=== PATIENT | female | born 1950 | race Caucasian/White ===

== ENCOUNTER 2018-10-13 09:23 | Inpatient (IN) ==
--- NOTE | 2018-09-14 08:52 | PAT Medication Instructions ---
Medication Instructions Date of Service September 14, 2018 Home Medications Pennsaid 2 dose EXT BID bimatoprost [Lumigan] 1 drp OPHTHALMIC (EYE) PM [Caltrate with Vitamin D3] 1 tab PO BID docusate sodium 100 mg PO QAM [Centrum Chewables] 1 tab PO QAM ASK your surgeon for instructions Pennsaid 2 dose EXT BID DO NOT take the morning of surgery [Caltrate with Vitamin D3] 1 tab PO BID docusate sodium 100 mg PO QAM [Centrum Chewables] 1 tab PO QAM Take evening before surgery bimatoprost [Lumigan] 1 drp OPHTHALMIC (EYE) PM [Caltrate with Vitamin D3] 1 tab PO BID *NOTHING TO EAT OR DRINK AFTER MIDNIGHT* Other Notes If you have any questions please call us at [phone] or [phone] or [phone] or [phone]
--- NOTE | 2018-09-14 09:30 | Anesthesiology Consultation ---
Date of Service September 14, 2018 Assessment & Plan (1) Encounter for pre-operative examination: Chart Review Chart Review: Acceptable Risk for Surgery and Patient seen in Pre Admission Testing Teaching & Discussion Instructed NPO after midnight before surgery, except medications with 15 cc of water. Medication instructions provided according to the PAT guidelines. History Surgery Operation Date: 10/13/18 08:30 Proposed Procedures p Left Total Knee Arthroplasty - Abdiel Charles DO Height/Weight Height: 5 ft 7 in Weight: 74.5 kg Allergies Allergy/AdvReac Type Severity Reaction Status Date / Time rosuvastatin [From Crestor] Allergy Unknown muscle Verified 09/08/18 11:09 aches Medications Home Medications Medication Instructions Recorded Confirmed Last Taken Pennsaid 2 dose EXT BID 09/08/18 09/08/18 Unknown bimatoprost [Lumigan] 1 drp OPHTHALMIC (EYE) PM 09/08/18 09/08/18 Unknown calcium carbonate-vitamin D3 1 tab PO BID 09/08/18 09/08/18 Unknown [Caltrate with Vitamin D3] docusate sodium 100 mg PO QAM 09/08/18 09/08/18 Unknown hmtehhqm-cxe-gnrf-folic-vit K1 1 tab PO QAM 09/08/18 09/08/18 Unknown [Centrum Chewables] Past Medical History Medical History Environmental allergies Glaucoma Hx of breast cancer left - lumpectomy and subsequent B/L mastectomy with reconstruction 2013. No chemo or XRT Hx of retinal detachment surgical repair 1971 Osteoarthritis Osteopenia Seasonal allergies Past Surgical History Surgical History History of eye surgery for retinal detachment 1972 Hx of bilateral mastectomy with reconstruction 2013 [facility] Hx of colonoscopy Past Anesthesia History No Hx of Anesthesia Complications and No Family Hx of Anesthesia Complications History of PONV No Motion Sickness Screening History of Motion Sickness: No Social History Smoking Status: Never smoker Do You Dip or Chew Tobacco: No Hx Alcohol Use: Yes alcohol intake frequency: a few times a month Hx Substance Use: No substance use type: does not use Exercise / Class Metabolic Activity II 4-5 Yardwork/Stairs/Walk up hill Review of Systems Pt denies any recent chest pain, shortness of breath, palpitations, cough, fever or URI. +cough/congestion currently, OTC treatment. Physical Exam Vital Signs BP: 118/74 P: 65 SPO2: 97% RA T: 98.2 F R: 16 ENMT Mouth: no dental restorations, no chipped teeth and no loose teeth Thyromental Distance: > or= 3.5 Finger Breadths (3.5) Mallampati Class: II Neck normal visual inspection; neck extension not limited Respiratory normal respiratory effort Auscultation: lungs clear to auscultation bilaterally Cardiovascular Rate/Rhythm: regular rate and regular rhythm Heart Sounds: no murmur Vessels: no carotid bruit Testing Electrocardiogram Date: 09/14/18 Findings: + NSR @ (62) RIGHTWARD AXIS. Chest X-Ray Date: 05/26/18 Findings: + NAD Laboratory Results 09/14/18 10:00 Blood Type O Positive 09/14/18 10:00 Antibody Screen NEGATIVE 09/14/18 10:00 PT 10.2 Seconds (9.0-12.0) 09/14/18 10:00 INR 1.0 (0.9-1.1) 09/14/18 10:00 APTT 28.2 Seconds (21.0-31.0) 09/14/18 10:00 Hemoglobin A1c 5.4 % (4.5-5.6) 09/14/18 10:00 Urine Color Yellow 09/14/18 Unknown Urine Appearance Clear (Clear) 09/14/18 Unknown Urine pH 5.5 (4.5-7.5) 09/14/18 Unknown Ur Specific [place] 1.020 (1.000-1.030) 09/14/18 Unknown Urine Protein Negative (Negative) 09/14/18 Unknown Urine Glucose (UA) Negative (Negative) 09/14/18 Unknown Urine Ketones Negative (Negative) 09/14/18 Unknown Urine Nitrite Negative (Negative) 09/14/18 Unknown Ur Leukocyte Esterase Negative (Negative) 09/14/18 Unknown
[2018-09-14 11:23] LABS: Basophils # (auto) 0.05 K/uL (0-0.2); Basophils % (auto) 0.9 %; Eosinophils # (auto) 0.19 K/uL (0-0.5); Eosinophils % (auto) 3.2 %; Hematocrit (blood only) 41.6 % (37-47); Hemoglobin 13.1 g/dL (12.0-16.0); Immature Granulocytes # (auto) 0.02 K/uL (0.00-0.02); Immature Granulocytes % (auto) 0.3 %; Lymphocytes # (auto) 1.44 K/uL (1.2-3.4); Lymphocytes % (auto) 24.6 %; Mean Corpuscular Hgb Conc 31.5 g/dL (32-36); Mean Corpuscular Volume 88.3 fL (80-100); Monocytes # (auto) 0.66 K/uL (0.11-0.59); Monocytes % (auto) 11.3 %; Neutrophils # (auto) 3.49 K/uL (1.4-6.5); Neutrophils % (auto) 59.7 %; Platelet Count 182 K/uL (130-400); RDW Coefficient of Variation 14.5 % (11.5-14.5); RDW Standard Deviation 47.2 fL (36.4-46.3); Red Blood Count 4.71 M/uL (4.2-5.4); White Blood Count 5.85 K/uL (4.8-10.8)
[2018-09-14 11:41] LABS: Partial Thromboplastin Ratio 1.1; Partial Thromboplastin Time 28.2 Seconds (21.0-31.0); Prothrombin Time 10.2 Seconds (9.0-12.0)
[2018-09-14 11:41] LABS: Appearance Urine Clear (Clear); Bilirubin Urine Negative (Negative); Color Urine Yellow; Glucose Urine UA Negative (Negative); Ketones Urine Negative (Negative); Leukocyte Esterase Urine Negative (Negative); Nitrite Urine Negative (Negative); Protein Urine Negative (Negative); Urobilinogen Urine Negative (Negative); pH Urine 5.5 (4.5-7.5)
[2018-09-14 12:41] LABS: Estimated Average Glucose 108 mg/dl
--- NOTE | 2018-09-14 13:52 | History & Physical Report ---
Date of Service September 14, 2018 Assessment & Plan (1) Arthritis of knee, left: Risks and benefits of procedure discussed in detail today, patient would like to proceed with a Left TKA @ [facility] as scheduled. will obtain medical clearance prior to surgery as well as obtain PATs at [facility]. Will place on ASA 81mg po bid x 1 month post op, f/u 2 weeks post op for routine post-operative care and xray, sooner if having any problems. will make arrangements for HHPT at the time of discharge. History of Present Illness Chief Complaint: left knee pain Ms Solomon is a 68 year old female who is here for a follow up of left knee pain , presents for preop evaluation prior to left total knee replacement. She presents with pain on the left side. She states that the symptoms have been chronic non-traumatic. The symptoms occur intermittently. The problem is fluctuating. Currently the patient states that the symptoms are moderate- severe. The pain is described as aching, discomforting and throbbing. The symptoms occur intermittently. She rates her current pain as 5/10. The symptoms are aggravated by ascending stairs, descending stairs, daily activities, first steps while awake, kneeling, movement, repetitive activities, sleeping on the affected side, squatting and walking. Tali states that the symptoms are relieved by no specific activity. In addition to left knee pain the patient is also experiencing decreased mobility, difficulty bending, difficulty going to sleep, instability, limping, nighttime awakening, pain, stiffness, tenderness and weakness. Pertinent negatives include chills and fever. The patient has had a previous x-ray and MRI. She has been treated with multiple corticosteroid injection on the left side. Patient has been treated with visco supplementation in the left knee. Patient has had previous therapy. Allergies Allergy/AdvReac Type Severity Reaction Status Date / Time rosuvastatin [From Crestor] Allergy Unknown muscle Verified 09/08/18 11:09 aches Home Medications Home Medications Medication Instructions Recorded Confirmed Type Pennsaid 2 dose EXT BID 09/08/18 09/08/18 History bimatoprost [Lumigan] 1 drp OPHTHALMIC (EYE) PM 09/08/18 09/08/18 History calcium carbonate-vitamin D3 1 tab PO BID 09/08/18 09/08/18 History [Caltrate with Vitamin D3] docusate sodium 100 mg PO QAM 09/08/18 09/08/18 History secazcge-jbh-jbgh-folic-vit K1 1 tab PO QAM 09/08/18 09/08/18 History [Centrum Chewables] Past Med/Surg History Medical History Environmental allergies Glaucoma Hx of breast cancer left - lumpectomy and subsequent B/L mastectomy with reconstruction 2013. No chemo or XRT Hx of retinal detachment surgical repair 1971 Osteoarthritis Osteopenia Seasonal allergies Surgical History History of eye surgery for retinal detachment 1972 Hx of bilateral mastectomy with reconstruction 2013 [facility] Hx of colonoscopy Social History Current Living Situation: Spouse Other Information That Helps Us Care for You: No Feels Safe at Home: Yes Safety Concerns: Feels Safe At This Time Smoking Status: Never smoker Do You Dip or Chew Tobacco: No Hx Alcohol Use: Yes Alcohol Intake Frequency: a few times a month Hx Substance Use: No Beliefs That Will Affect Care: None Preferred Language: Amharic Communication Ability: Effective Review of Systems All systems reviewed & are unremarkable except as noted in HPI & below Physical Exam 2 Constitutional: WD/WN, vitals as above no acute distress Respiratory: normal respiratory effort, lungs clear to auscultation Cardiovascular: RRR, no murmur, no edema Gastrointestinal (Abdomen): normal bowel sounds, soft, nontender, no hepatosplenomegaly Musculoskeletal: Left Knee Physical Exam Findings Details Ankle ROM L * Active ROM - Factors: normal, Description: active pain free range of motion. Passive ROM - Factors: normal, Description: passive pain free range of motion. Hip ROM L * Active ROM - Factors: normal, Description: active pain free range of motion. Passive ROM - Factors: normal, Description: passive pain free range of motion. Knee ROM L * Active ROM - Flexion: 115 degrees, Extension: 3 degrees, Factors: pain, Description: active painful range of motion. Passive ROM - Flexion: 120 degrees , Extension: 3 degrees, Factors: pain, Description: passive painful range of motion. Strength LE Normal Strength Description - Normal lower extremity: Bilateral. Hip: Right: strength is normal, Left: strength is normal. Knee: Right: strength is normal, Left: strength is normal. Ankle/Foot: Right: strength is normal, Left: strength is normal. Knee * Inspection - Gait: limp. Alignment - Right: varus, Clinical, Left: varus. Ecchymosis - Right: none, Left: none. Effusion - Right: mild, Left: mild. Swelling - Right: mild. Maximum tenderness - Right: diffuse, Left: diffuse. Patella exam - Crepitation - Right: moderate, Left: moderate. Elidia's - Left: Positive. Tere's - lateral - Right: Positive, Left: Positive. [facility]'s - medial - Right: Positive, Left: Positive. Knee Comments Calf SNT, DP+2 Knee Normal Inspection - Atrophy - Right: Absent, Left: Absent. Patella exam - Apprehension - Right: Negative. Elidia's - Right: Negative. Valgus stress - Right: Negative , Left: Negative. Varus stress - Right: Negative, Left: Negative. Extensor lag - Right: Normal, Left: Normal. Neurovascular LE Normal Neurovascular examination including reflexes, sensation, and pulses is within normal limits. Results & Data Diagnostic Findings Left Knee X-ray: left knee series confirm degenerative changes to the left knee, greatest medial compartments and patellofemoral joint, showing joint space narrowing, osteophyte formation. no acute bony pathology noted.
[~2018-10-13 09:23] MED LIST: ACETAMINOPHEN 500 MG TAB PO SCH; BUPIVACAINE 0.5 % 5 MG/1 ML PF 10ML VIAL ONE; CEFAZOLIN 1000MG 1,000 MG/7.5 ML SYR IV SCH; CeleBREX 200 MG CAP PO SCH; FAMOTIDINE 20 MG TAB PO SCH; GABAPENTIN 300 MG PO SCH; ROPIVACAINE 0.5% 5 MG/ML 30 ML VIAL ONE; ROPIVACAINE 0.5% HCL/PF 150 MG, BUPIVACAINE 0.5% MPF 30 ML, EPINEPHrine 30MG/30ML (OR U... INFIL SCH; TRANEXAMIC ACID 1,000 MG **IV Intra-op IV SCH; TRANEXAMIC ACID 1,000 MG **IV Pre-op IV SCH; dexAMETHasone 4 MG TAB PO SCH
[2018-10-13] MEDS: LR 500ML BOLUS, THEN 15ML/HR IV SCH ×5 (10:05→19:04)
[2018-10-13] MEDS ORDERED: MIDAZOLAM HCL 1 MG/ML 2ML VIAL ONE ×3 (10:49→12:19)
[2018-10-13] MEDS ORDERED: PROPOFOL IV EMULSION 10 MG/ML 20 ML VIAL IV ONE ×2 (10:49→12:20)
[2018-10-13] MEDS ORDERED: fentaNYL citrate 100 MCG/2 ML VIAL ONE (10:49)
[2018-10-13] MEDS ORDERED: LIDOCAINE HCL 2% 2 ML VIAL/AMP(20MG/ML) INFIL ONE (10:50)
--- NOTE | 2018-10-13 11:00 | History & Physical Bridge Note ---
Date of Service October 13, 2018 History & Physical Bridge Note I have examined the patient, reviewed the History & Physical and in the interval since the performance of the History & Physical I have noted the following changes of clinical significance: no changes noted
[2018-10-13] MEDS ORDERED: ePHEDrine sulfate 50 MG/ML AMP IV PRN (11:31)
[2018-10-13] MEDS ORDERED: ATROPINE SULFATE 0.1 MG/ML 10ML SYR IV PRN (11:31)
[2018-10-13] MEDS ORDERED: ONDANSETRON INJ 2 MG/ML 2 ML VIAL IV PRN ×2 (11:31→15:28)
[2018-10-13] MEDS ORDERED: fentaNYL citrate 100 MCG/2 ML VIAL IV PRN (11:31)
[2018-10-13] MEDS ORDERED: BACITRACIN INJ 50,000 UNIT VIAL ONE (11:44)
[2018-10-13] MEDS ORDERED: POVIDONE-IODINE OP SOLN 30 ML BTL ONE (11:44)
[2018-10-13] MEDS ORDERED: ONDANSETRON INJ 2 MG/ML 2 ML VIAL ONE (12:19)
[2018-10-13] MEDS: ORTHO JOINT ANESTHETIC ONE ×2 (12:39→16:47)
--- NOTE | 2018-10-13 13:08 | Operative Report ---
Post Operative Report Pre & Post Diagnosis Operation Date: 10/13/18 12:35 Pre-Op Diagnosis: Left Knee Osteoarthritis Post-Op Diagnosis: Left Knee Osteoarthritis Procedure Operation Date: 10/13/18 12:35 Actual Procedures p Left Total Knee Arthroplasty(Left) utilizing [employer] journey 2 patient matched total knee arthroplasty size 4 femur 4 tibia 13 polyethylene 32 oval patella- Abdiel Charles DO Surgeon Abdiel Charles DO Director Regulatory Agency Tod RAYMUNDO Estimated Blood Loss 10 Findings Consistent with Post-Op Diagnosis Patient presents with severe end-stage tricompartmental degenerative joint disease right knee no response to conservative management for right total knee arthroplasty after failing attempts at conservative management the above findings were noted subchondral sclerosis and subchondral cystic changes marginal osteophytes moderate to large effusion with varus alignment and medial osteophytes of both femur and tibia Specimens Bone and cartilage Drains Medium bore Hemovac Complications none Disposition Accompanied Patient To Recovery: No Disposition: Recovery Room Indications Patient presents for a left total knee arthroplasty after failed attempted conservative management and physical therapy anti-inflammatories relative rest activity modification corticosteroid injections bracing patient was had the above findings noted times surgery Description of Procedure After proper prepping and draping of the left lower extremity anterior midline incision was made over the region of the extensor extensor mechanism after meticulous hemostasis was obtained and maintained in subcutaneous tissues a medial parapatellar incision was made The patella was subluxed lateralward the medial lateral gutter were cleaned from any hypertrophic synovitis and scar tissue of the distal femoral block was placed and the distal femoral osteotomy cut was made subsequently the chamfers anterior and posterior osteotomy cuts were made utilizing the 4-in-1 block the tibia was subsequently subluxed anteriorward medial and ateral meniscal remnants were excised in their entirety remnants of the anterior and posterior cruciate ligaments were excised in their entirety excellent exposure of the proximal tibia was obtained the tibial osteotomy guide was placed on the proximal tibial osteotomy cut was made once again the knee was irrigated with copious amounts of sterile saline solution the patella was subsequently everted lateralward thickened scar tissue around the patella was removed the patella was subsequently cut utilizing a freehand technique and was drilled prepared for final preparation and placement of patella socially flexion-extension gaps were checked and the equal and symmetric trials were placed to the appropriate femoral and tibial trials with poly-spacer being placed for equal flexion and extension gaps and full range of motion including extension to 0 and flexion to 140 the trial components after having been taken to recovery range of motion was subsequently removed meticulous hemostasis was obtained and maintained subsequently a knee block injection of joint cocktail including ropivacaine 0.5% 150 mg. Bupivacaine 0.5 % epinephrine 1-200,030 mL's toradol 30 mg dexamethasone 4 mg ketamine 10 mg clonidine 100 micrograms normal saline solution 30 mg was infiltrated into the soft tissues of the posterior knee medial lateral gutters and periosteal synovium special attention was paid to protect neurovascular structures at all times subsequently trial components having been removed the knee was irrigated with sterile saline solution. debris was removed the proximal tibia was subsequently prepared and was made ready for the placement of the tibial component tibial component was also cemented and tamped into position the femoral component was subsequently placed and cemented in the position the patellar component was subsequently cemented in position because hemostasis once again obtained and maintained wound having been thoroughly irrigated with debridement and debridement lavage was performed as well as a medial parapatellar incision closed with #1 Vicryl in interrupted fashion subcutaneous was closed with #2 Vicryl skin was closed with skin clips. PA-C was necessary for prepping and drapping as well as wound closure of deep fascia Sub cutaneous tissue and skin and was necessary for the case. A sterile compressive dressing was placed patient was taken to recovery in stable condition of report dictated by Melvin I attest to the content of the Intraoperative Record and any orders documented therein. Any exceptions are noted below. I attest to the content of the Intraoperative Record and any orders documented therein. Any exceptions are noted below.
--- NOTE | 2018-10-13 14:31 | Anesthesiology Progress Note ---
Date of Service October 13, 2018 Anesthesia Post Procedure Vital Signs Vital Signs: Temp Pulse Pulse Resp BP Pulse Ox 10/13/18 14:20 71 17 111/62 100 10/13/18 14:10 68 16 112/69 100 10/13/18 14:00 70 16 111/67 100 10/13/18 13:53 36 C L 70 16 115/69 99 10/13/18 10:55 36.8 C 60 18 157/81 H 97 Pain Intensity Left Knee: Pain Intensity: 0 Notes Mental Status: alert / awake / arousable and participated in evaluation Patient Amnestic to Procedure: Yes Nausea / Vomiting: adequately controlled Pain: adequately controlled Airway Patency, RR, SpO2: stable & adequate BP & HR: stable & adequate Hydration State: stable & adequate Anesthetic Complications: no major complications apparent and Pt Satisfied with anesthetic care
--- NOTE | 2018-10-13 14:38 | XRay Report ---
LEFT KNEE 2 VIEWS History: Left total knee arthroplasty. Degenerative arthritis. Postop. FINDINGS: The patient is status post a left total knee arthroplasty. The hardware is intact. No fract ure or dislocation. Surgical drains are in place. IMPRESSION: Left total knee arthroplasty. No evidence for hardware complication. Electronically signed by: Brodie Barnes M.D. 10/13/2018 2:37 PM
[2018-10-13] MEDS ORDERED: OXYCODONE HCL IR 5 MG TAB (IMMEDIATE RELEASE) PO PRN (15:28)
[2018-10-13] MEDS ORDERED: MAGNESIUM HYDROXIDE SUSP 30 ML UDC PO PRN (15:28)
[2018-10-13] MEDS ORDERED: BISACODYL 10 MG SUPP PR PRN (15:28)
[2018-10-13] MEDS ORDERED: MoRPHine SULFATE 2 MG/ML CARP IV PRN (15:28)
[2018-10-13] MEDS ORDERED: SODIUM CHLORIDE 0.9% 1000ML 1,000 ML IV SCH (15:28)
[2018-10-13] MEDS: ACETAMINOPHEN 500 MG TAB PO SCH ×2 (16:56→23:42)
[2018-10-13] MEDS: KETOROLAC TROMETHAMINE 15 MG/ML VIAL IV SCH ×2 (18:41→23:42)
[2018-10-13] MEDS: CEFAZOLIN 1000MG 1,000 MG/7.5 ML SYR IV SCH (20:13)
[2018-10-13] MEDS: DOCUSATE SODIUM 100 MG CAP PO SCH (20:13)
[2018-10-13] MEDS: ASPIRIN 81 MG ECTAB PO SCH (20:13)
[2018-10-13] MEDS: CALCIUM 600MG + VIT D 400 IU TAB PO SCH (20:13)
[2018-10-13] MEDS ORDERED: Nursing to Pharmacy Communication ONE (20:24)
[2018-10-13] MEDS ORDERED: SENNA 8.6 MG TAB PO SCH (21:00)
[2018-10-13] MEDS ORDERED: BIMATOPROST 0.01% OP SOLN 2.5 ML BTL OP SCH (21:00)
[2018-10-14] MEDS: CEFAZOLIN 1000MG 1,000 MG/7.5 ML SYR IV SCH (04:38)
[2018-10-14] MEDS: KETOROLAC TROMETHAMINE 15 MG/ML VIAL IV SCH ×2 (05:19→11:30)
[2018-10-14 05:46] LABS: Hematocrit (blood only) 36.8 % (37-47); Hemoglobin 11.6 g/dL (12.0-16.0); Mean Corpuscular Hgb Conc 31.5 g/dL (32-36); Mean Corpuscular Volume 87.2 fL (80-100); Mean Platelet Volume 12.1 fL (7.4-10.4); Platelet Count 195 K/uL (130-400); RDW Standard Deviation 44.7 fL (36.4-46.3); Red Blood Count 4.22 M/uL (4.2-5.4); White Blood Count 10.04 K/uL (4.8-10.8)
[2018-10-14 06:17] LABS: BUN Creatinine Ratio 25.7 (10-20); Creatinine Clr Calc Pharmacy 61.8 ml/min; Est GFR (African American) 77.2; Est GFR (Non-African American) 66.6; Potassium 4.3 mmol/L (3.5-5.1)
--- NOTE | 2018-10-14 06:52 | Orthopedic Progress Note ---
Date of Service October 14, 2018 Assessment & Plan (1) History of total left knee replacement (TKR): POD #1 s/p Left TKA pt/ot dvt proph with [facility]/SCD/ASA plan for d/c home with home health PT when stable, possibly later today Subjective POD #1 s/p Left TKA Constitutional: no fever, no chills and no sweats Respiratory: no cough and no dyspnea Cardiovascular: no chest pain and no dyspnea Physical Exam 2 Vital Signs (Past 24 Hours): Last Vital Signs Temp 36.6 C 10/14/18 03:59 Pulse 53 L 10/14/18 03:59 Resp 16 10/14/18 03:59 BP 97/60 L 10/14/18 03:59 Pulse Ox 94 10/14/18 03:59 Musculoskeletal: NVDI, calf SNT, negative radha sign. DP palpable, able to wiggle toes/ankle movement without difficulty. dressing clean dry and intact. Results & Data Laboratory Results Vital Signs Temp Pulse Pulse Pulse Resp BP Pulse Ox 10/14/18 03:59 36.6 C 53 L 16 97/60 L 94 10/13/18 22:55 36.7 C 58 L 16 109/66 95 10/13/18 18:53 36.5 C 54 L 20 108/65 98 10/13/18 16:35 36.6 C 68 20 117/76 98 10/13/18 15:28 36.5 C 60 20 108/67 97 10/13/18 15:19 36.5 C 61 20 112/76 94 10/13/18 14:50 36.3 C L 67 16 103/64 93 10/13/18 14:40 36.7 C 67 18 107/64 94 10/13/18 14:30 36.7 C 70 22 109/69 94 10/13/18 14:20 71 17 111/62 100 10/13/18 14:10 68 16 112/69 100 10/13/18 14:00 70 16 111/67 100 10/13/18 13:53 36 C L 70 16 115/69 99 10/13/18 10:55 36.8 C 60 18 157/81 H 97 Intake and Output 10/13/18 10/13/18 10/14/18 14:59 22:59 06:59 Intake Total 1410 / 1410 Output Total 1125 / 1125 575 / 575 Balance 1400 / 1400 -1125 / -1125 -575 / -575 Intake: IV 610 / 610 Lr 1,000 ml @ 999 mls/hr IV . 500 / 500 Q1H1M [facility] Rx#:[id number] Cyklokapron 1,000 mg In Sodium 110 / 110 Chloride 100 ml @ 660 mls/hr IV TODAY@0600 BHAVESH Rx#:[id number] IV Perioperative 800 / 800 Output: Urine 1050 / 1050 400 / 400 Estimated Blood Loss 10 10 Drain Output 75 / 75 175 / 175 Left Knee Hemovac 75 / 75 175 / 175 Other: Weight 73.6 kg Patient Weight 10/14/18 06:59 Weight 73.6 kg PT 10.2 Seconds (9.0-12.0) 09/14/18 10:00 APTT 28.2 Seconds (21.0-31.0) 09/14/18 10:00 Vital Signs Temp 36.6 C 10/14/18 03:59 Pulse 53 L 10/14/18 03:59 Resp 16 10/14/18 03:59 BP 97/60 L 10/14/18 03:59 Pulse Ox 94 10/14/18 03:59 Intake & Output 10/13/18 10/13/18 10/14/18 06:59 18:59 06:59 Intake Total 1410 / 1410 Output Total 360 / 360 1350 / 1350 Balance 1050 / 1050 -1350 / -1350 Weight 73.6 kg Intake: IV 610 / 610 Lr 1,000 ml @ 999 mls/hr IV . 500 / 500 Q1H1M [facility] Rx#:[id number] Cyklokapron 1,000 mg In Sodium 110 / 110 Chloride 100 ml @ 660 mls/hr IV TODAY@0600 [facility] Rx#:[id number] IV Perioperative 800 / 800 Output: Urine 350 / 350 1100 / 1100 Estimated Blood Loss 10 / 10 Drain Output 250 / 250 Left Knee Hemovac 250 / 250
[2018-10-14] MEDS: ASPIRIN 81 MG ECTAB PO SCH (08:21)
[2018-10-14] MEDS: DOCUSATE SODIUM 100 MG CAP PO SCH (08:21)
[2018-10-14] MEDS: CALCIUM 600MG + VIT D 400 IU TAB PO SCH (08:21)
[2018-10-14] MEDS: ACETAMINOPHEN 500 MG TAB PO SCH (08:21)
[2018-10-14] MEDS ORDERED: PANTOprazole 40 MG TAB PO SCH (09:00)
[2018-10-14] MEDS ORDERED: MULTIVITAMIN TAB PO SCH (09:00)
--- NOTE | 2018-10-14 10:53 | Anesthesiology Progress Note ---
Date of Service October 14, 2018 Anesthesia Post Procedure Vital Signs Vital Signs: Temp Pulse Pulse Pulse Resp BP Pulse Ox 10/14/18 07:40 37 C 58 L 14 102/64 96 10/14/18 03:59 36.6 C 53 L 16 97/60 L 94 10/13/18 22:55 36.7 C 58 L 16 109/66 95 10/13/18 18:53 36.5 C 54 L 20 108/65 98 10/13/18 16:35 36.6 C 68 20 117/76 98 10/13/18 15:28 36.5 C 60 20 108/67 97 10/13/18 15:19 36.5 C 61 20 112/76 94 10/13/18 14:50 36.3 C L 67 16 103/64 93 10/13/18 14:40 36.7 C 67 18 107/64 94 10/13/18 14:30 36.7 C 70 22 109/69 94 10/13/18 14:20 71 17 111/62 100 10/13/18 14:10 68 16 112/69 100 10/13/18 14:00 70 16 111/67 100 10/13/18 13:53 36 C L 70 16 115/69 99 10/13/18 10:55 36.8 C 60 18 157/81 H 97 Pain Intensity Left Knee: Pain Intensity: 0 Notes Mental Status: alert / awake / arousable and participated in evaluation Patient Amnestic to Procedure: Yes Nausea / Vomiting: adequately controlled Pain: adequately controlled Airway Patency, RR, SpO2: stable & adequate BP & HR: stable & adequate Hydration State: stable & adequate Neuraxial Anesthesia: was administered and sensory block resolved Anesthetic Complications: no major complications apparent and Pt Satisfied with anesthetic care
--- NOTE | 2018-10-14 16:53 | Discharge Summary ---
Date of Service Admission Date: 10/14/18 Discharge Date: October 14, 2018 Admission HPI Per Admitting Provider Ms Solomon is a 68 year old female who is here for a follow up of left knee pain , presents for preop evaluation prior to left total knee replacement. She presents with pain on the left side. She states that the symptoms have been chronic non-traumatic. The symptoms occur intermittently. The problem is fluctuating. Currently the patient states that the symptoms are moderate- severe. The pain is described as aching, discomforting and throbbing. The symptoms occur intermittently. She rates her current pain as 5/10. The symptoms are aggravated by ascending stairs, descending stairs, daily activities, first steps while awake, kneeling, movement, repetitive activities, sleeping on the affected side, squatting and walking. Tali states that the symptoms are relieved by no specific activity. In addition to left knee pain the patient is also experiencing decreased mobility, difficulty bending, difficulty going to sleep, instability, limping, nighttime awakening, pain, stiffness, tenderness and weakness. Pertinent negatives include chills and fever. The patient has had a previous x-ray and MRI. She has been treated with multiple corticosteroid injection on the left side. Patient has been treated with visco supplementation in the left knee. Patient has had previous therapy. Admission Exam Per Admitting Provider Left Knee Physical Exam Findings Details Ankle ROM L * Active ROM - Factors: normal, Description: active pain free range of motion. Passive ROM - Factors: normal, Description: passive pain free range of motion. Hip ROM L * Active ROM - Factors: normal, Description: active pain free range of motion. Passive ROM - Factors: normal, Description: passive pain free range of motion. Knee ROM L * Active ROM - Flexion: 115 degrees, Extension: 3 degrees, Factors: pain, Description: active painful range of motion. Passive ROM - Flexion: 120 degrees , Extension: 3 degrees, Factors: pain, Description: passive painful range of motion. Strength LE Normal Strength Description - Normal lower extremity: Bilateral. Hip: Right: strength is normal, Left: strength is normal. Knee: Right: strength is normal, Left: strength is normal. Ankle/Foot: Right: strength is normal, Left: strength is normal. Knee * Inspection - Gait: limp. Alignment - Right: varus, Clinical, Left: varus. Ecchymosis - Right: none, Left: none. Effusion - Right: mild, Left: mild. Swelling - Right: mild. Maximum tenderness - Right: diffuse, Left: diffuse. Patella exam - Crepitation - Right: moderate, Left: moderate. Elidia's - Left: Positive. Tere's - lateral - Right: Positive, Left: Positive. Tere's - medial - Right: Positive, Left: Positive. Knee Comments Calf SNT, DP+2 Knee Normal Inspection - Atrophy - Right: Absent, Left: Absent. Patella exam - Apprehension - Right: Negative. Elidia's - Right: Negative. Valgus stress - Right: Negative , Left: Negative. Varus stress - Right: Negative, Left: Negative. Extensor lag - Right: Normal, Left: Normal. Neurovascular LE Normal Neurovascular examination including reflexes, sensation, and pulses is within normal limits. Principal Diagnosis left knee osteoarthritis Discharge Exam Musculoskeletal NVDI, calf SNT, negative radha sign. DP palpable, able to wiggle toes/ankle movement without difficulty. PEYTON dressing clean dry and intact. Discharge Data Allergies Allergy/AdvReac Type Severity Reaction Status Date / Time rosuvastatin [From Crestor] AdvReac Unknown muscle Verified 10/13/18 10:30 aches Consultations 10/13/18 15:28 Consult Case Management - Discharge Planning Routine Procedures Performed Operation Date: 10/13/18 12:35 Actual Procedures p Left Total Knee Arthroplasty(Left) - Abdiel Charles DO Ordered Studies 10/13/18 05:00 US - OR guided needle placemen Routine Hospital Course (1) History of total left knee replacement (TKR): Patient was a same day admission after undergoing a successful left TKA. She tolerated the procedure well. Post-operatively, her activity was progressed and well tolerated. Please refer to daily progress notes and PT notes for complete details. After exam on 10/14/18, patient felt to be stable for discharge home with HHPT. Patient will f/u in the office in 2 weeks for further evaluation including x-rays and incision check, sooner if having any issues or concerns. Below are pertinent labs/studies during their hospital stay: Vital Signs Temp 36.7 C 10/14/18 11:45 Pulse 54 L 10/14/18 11:45 Resp 12 10/14/18 11:45 BP 118/78 10/14/18 11:45 Pulse Ox 97 10/14/18 11:45 Intake & Output 10/13/18 10/14/18 10/14/18 18:59 06:59 18:59 Intake Total 1410 / 1410 Output Total 360 / 360 1350 / 1350 300 / 300 Balance 1050 / 1050 -1350 / -1350 -300 / -300 Weight 73.6 kg 73.6 kg Intake: IV 610 / 610 Lr 1,000 ml @ 999 mls/hr IV . 500 / 500 Q1H1M [facility] Rx#:[id number] Cyklokapron 1,000 mg In Sodium 110 / 110 Chloride 100 ml @ 660 mls/hr IV TODAY@0600 [facility] Rx#:[id number] IV Perioperative 800 / 800 Output: Urine 350 / 350 1100 / 1100 150 / 150 Estimated Blood Loss Drain Output 250 / 250 150 / 150 Left Knee Hemovac 250 / 250 150 / 150 Lab Results 09/14/18 09/14/18 09/14/18 Range/Units 10:00 10:00 10:00 WBC 5.85 (4.8-10.8) K/uL RBC 4.71 (4.2-5.4) M/uL Hgb 13.1 (12.0-16.0) g/dL Hct 41.6 (37-47) % MCV 88.3 (80-100) fL MCH 27.8 (25-34) pg MCHC 31.5 L (32-36) g/dL RDW Std Deviation 47.2 H (36.4-46.3) fL RDW Coeff of Franklyn 14.5 (11.5-14.5) % Plt Count 182 (130-400) K/uL MPV 12.0 H (7.4-10.4) fL Immature Gran % (Auto) 0.3 % Neut % (Auto) 59.7 % Lymph % (Auto) 24.6 % [place] % (Auto) 11.3 % Eos % (Auto) 3.2 % Baso % (Auto) 0.9 % Immature Gran # (Auto) 0.02 (0.00-0.02) K/uL Neut # (Auto) 3.49 (1.4-6.5) K/uL Lymph # (Auto) 1.44 (1.2-3.4) K/uL [place] # (Auto) 0.66 H (0.11-0.59) K/uL Eos # (Auto) 0.19 (0-0.5) K/uL Baso # (Auto) 0.05 (0-0.2) K/uL PT 10.2 (9.0-12.0) Seconds INR 1.0 (0.9-1.1) APTT 28.2 (21.0-31.0) Seconds PTT Ratio 1.1 Sodium (136-145) mmol/L Potassium (3.5-5.1) mmol/L Chloride (98-107) mmol/L Carbon Dioxide (21-32) mmol/L Anion Gap (3-11) BUN (7-18) mg/dl Creatinine (0.6-1.2) mg/dl Est Cr Clr Drug Dosing ml/min Est GFR ( Amer) Est GFR (Non-Af Amer) BUN/Creatinine Ratio (10-20) Glucose (70-99) mg/dl Estimat Average Glucose mg/dl Hemoglobin A1c (4.5-5.6) % Calcium (8.5-10.1) mg/dl Albumin (3.4-5.0) gm/dl Urine Color Urine Appearance (Clear) Urine pH (4.5-7.5) Ur Specific [place] (1.000-1.030) Urine Protein (Negative) Urine Glucose (UA) (Negative) Urine Ketones (Negative) Urine Blood (Negative) Urine Nitrite (Negative) Urine Bilirubin (Negative) Urine Urobilinogen (Negative) Ur Leukocyte Esterase (Negative) Hepatitis C Ab Screen (Neg) Blood Type O Positive Antibody Screen NEGATIVE 09/14/18 09/14/18 09/14/18 Range/Units 10:00 10:00 Unknown WBC (4.8-10.8) K/uL RBC (4.2-5.4) M/uL Hgb (12.0-16.0) g/dL Hct (37-47) % MCV (80-100) fL MCH (25-34) pg MCHC (32-36) g/dL RDW Std Deviation (36.4-46.3) fL RDW Coeff of Franklyn (11.5-14.5) % Plt Count (130-400) K/uL MPV (7.4-10.4) fL Immature Gran % (Auto) % Neut % (Auto) % Lymph % (Auto) % [place] % (Auto) % Eos % (Auto) % Baso % (Auto) % Immature Gran # (Auto) (0.00-0.02) K/uL Neut # (Auto) (1.4-6.5) K/uL Lymph # (Auto) (1.2-3.4) K/uL [place] # (Auto) (0.11-0.59) K/uL Eos # (Auto) (0-0.5) K/uL Baso # (Auto) (0-0.2) K/uL PT (9.0-12.0) Seconds INR (0.9-1.1) APTT (21.0-31.0) Seconds PTT Ratio Sodium (136-145) mmol/L Potassium (3.5-5.1) mmol/L Chloride (98-107) mmol/L Carbon Dioxide (21-32) mmol/L Anion Gap (3-11) BUN (7-18) mg/dl Creatinine (0.6-1.2) mg/dl Est Cr Clr Drug Dosing ml/min Est GFR ( Amer) Est GFR (Non-Af Amer) BUN/Creatinine Ratio (10-20) Glucose (70-99) mg/dl Estimat Average Glucose 108 mg/dl Hemoglobin A1c 5.4 (4.5-5.6) % Calcium (8.5-10.1) mg/dl Albumin 3.6 (3.4-5.0) gm/dl Urine Color Yellow Urine Appearance Clear (Clear) Urine pH 5.5 (4.5-7.5) Ur Specific [place] 1.020 (1.000-1.030) Urine Protein Negative (Negative) Urine Glucose (UA) Negative (Negative) Urine Ketones Negative (Negative) Urine Blood Negative (Negative) Urine Nitrite Negative (Negative) Urine Bilirubin Negative (Negative) Urine Urobilinogen Negative (Negative) Ur Leukocyte Esterase Negative (Negative) Hepatitis C Ab Screen (Neg) Blood Type Antibody Screen 10/14/18 10/14/18 10/14/18 Range/Units 05:13 05:13 05:13 WBC 10.04 (4.8-10.8) K/uL RBC 4.22 (4.2-5.4) M/uL Hgb 11.6 L (12.0-16.0) g/dL Hct 36.8 L (37-47) % MCV 87.2 (80-100) fL MCH 27.5 (25-34) pg MCHC 31.5 L (32-36) g/dL RDW Std Deviation 44.7 (36.4-46.3) fL RDW Coeff of Franklyn 14.0 (11.5-14.5) % Plt Count 195 (130-400) K/uL MPV 12.1 H (7.4-10.4) fL Immature Gran % (Auto) % Neut % (Auto) % Lymph % (Auto) % [place] % (Auto) % Eos % (Auto) % Baso % (Auto) % Immature Gran # (Auto) (0.00-0.02) K/uL Neut # (Auto) (1.4-6.5) K/uL Lymph # (Auto) (1.2-3.4) K/uL [place] # (Auto) (0.11-0.59) K/uL Eos # (Auto) (0-0.5) K/uL Baso # (Auto) (0-0.2) K/uL PT (9.0-12.0) Seconds INR (0.9-1.1) APTT (21.0-31.0) Seconds PTT Ratio Sodium 140 (136-145) mmol/L Potassium 4.3 (3.5-5.1) mmol/L Chloride 109 H (98-107) mmol/L Carbon Dioxide 27 (21-32) mmol/L Anion Gap 4.0 (3-11) BUN 23 H (7-18) mg/dl Creatinine 0.90 (0.6-1.2) mg/dl Est Cr Clr Drug Dosing 61.8 ml/min Est GFR ( Amer) 77.2 Est GFR (Non-Af Amer) 66.6 BUN/Creatinine Ratio 25.7 H (10-20) Glucose 111 H (70-99) mg/dl Estimat Average Glucose mg/dl Hemoglobin A1c (4.5-5.6) % Calcium 9.0 (8.5-10.1) mg/dl Albumin (3.4-5.0) gm/dl Urine Color Urine Appearance (Clear) Urine pH (4.5-7.5) Ur Specific [place] (1.000-1.030) Urine Protein (Negative) Urine Glucose (UA) (Negative) Urine Ketones (Negative) Urine Blood (Negative) Urine Nitrite (Negative) Urine Bilirubin (Negative) Urine Urobilinogen (Negative) Ur Leukocyte Esterase (Negative) Hepatitis C Ab Screen Neg (Neg) Blood Type Antibody Screen Total Time Total Time Spent Total Time Spent (In Minutes): 25 Total Time Includes: Examination of the Patient, Discharge Planning and Medication Reconciliation Discharge Plan Discharge Items Patient Disposition: Home - Home Health Services Reason For Visit: Left Knee Osteoarthritis Discharge Diagnosis: left total knee replacement Condition: Good Discharge Goals: Decrease discomfort, Improve function and Increase independence Activity: Per 'Additional Instructions' section Lifting: Wait until after follow-up appointment Weightbearing: Left weightbearing Weightbearing Comment: WBAT with walker Non-emergency contact: Primary Care Provider and Surgeon Call non-emergency contact if: you have any medication questions, your pain is worsening, your temperature is above 100.5, your wound has increased redness, your wound has increased drainage and your wound pain has increased Follow-up/Referrals: Sandy Blanc D.O. [Primary Care Provider] - Diet: Regular Addtl Provider Instructions: ACTIVITY RECOMMENDATIONS: SELF CARE INSTRUCTIONS AFTER TOTAL KNEE REPLACEMENT A. You may need to continue a physical therapy program after discharge from the hospital. There are several options available to you. Your doctor will assist you in selecting the best one for you. 1. An out-patient facility 2 to 3 times a week for therapy or home therapy. 2. Continue working on all exercises taught to you in the hospital. Your goals should be to increase bending of your knee to 90 degrees and beyond and to fully straighten your knee. B. You may progress at your own pace from walking with a walker or crutches to a cane; then to no assistive devices. C. Make walking a part of your daily routine. Be up as much as comfortable with rest periods throughout the day. Rest with leg elevation is very important. Use the ice wrap frequently for the first 3-4 weeks. D. There are no restrictions on activities. You may ride in a car, shop, participate in discharge door operator and all social activities. E. Wear the long elastic stockings (KIRSTIN hose) 20 hours a day for 2 weeks after surgery. They can be removed several times a day for laundering and for a bath. F. You may shower, no tub baths until cleared by your doctor. SPECIAL CARE INSTRUCTIONS: VERY IMPORTANT TO READ AND REVIEW A. There are a few signs you need to watch for after you are home. Call [facility] [place] if you notice any of the followin. Increased severe knee pain. Some pain is expected especially when you exercise. 2. Increased swelling in your leg or knee; pain or swelling of the calf muscle in either lower leg. 3. Any fluid drainage from the incision. 4. Shortness of breath or chest pain. B. Please call [facility] at if you have any concerns or questions about your operation or recovery. The doctor or his nurse will return your call promptly. C. You must take antibiotics before dental work, bladder, bowel or other surgery. Your doctor will provide you with a permanent care to carry describing this precaution. IMPORTANT: * REMEMBER TO TAKE ASPIRIN, 81 MG, TWICE DAILY FOR 4 WEEKS UNLESS OTHERWISE DIRECTED. THIS IS YOUR BLOOD THINNER. * HIGH RISK PATIENTS MAY BE PRESCRIBED A STRONGER BLOOD THINNER. THIS WILL BE PROVIDED AT DISCHARGE. * CALL IF INCREASED PAIN, REDNESS, DRAINAGE OR FEVER GREATER THAT 101. * WEAR KIRSTIN HOSE 20 HOURS PER DAY FOR 2 WEEKS. * PEYTON Dressing- This is a large suction dressing covering your incision. This will help pull any excess drainage from the wound and allow your incision to heal properly. You may shower with this if you can keep the unit outside of the shower. If any bleeding or leakage is noted please call your doctor's office. This will remain on your incision for 7 days and then should be removed. This can be done yourself or by the home nursing staff if applicable. The entire unit is disposable once removed. Once removed, keep incision clean and dry. If redness or drainage is noted, please call your surgeon. ONCE THE PEYTON IS REMOVED, FOLLOW THESE INSTRUCTIONS: DERMABOND Prineo- This is a mesh tape dressing that is covered with glue. It should remain in place until the incision is properly healed, usually 10-14 days. This dressing is designed to naturally slough off. You may trim the excess mesh tape as it peels off. Incision may be briefly wet in a shower. Dry immediately by blotting with a clean, dry towel. Do not bath or swim until instructed by your doctor. Do not scratch, rub, or pick at the dressing. Do not apply any topical ointments or lotions until dressing is completely removed and/or instructed by your doctor. There may be a small piece of suture material at one end of your incision. Do not pull or trim this. If it is bothersome or catching on clothing, you may cover it with a band-aid. FOLLOW UP VISIT: If appointment is not already scheduled: Please call [facility] [place] to make a follow-up appointment for 2 weeks after your surgery at . Prescriptions: New celecoxib [Celebrex] 200 mg Capsule 200 mg PO BID 30 Days Qty: 60 RF: 0 aspirin [Ecotrin Low Strength] 81 mg Tablet,Delayed Release (Dr/Ec) 81 mg PO BID 30 Days Qty: 60 RF: 0 acetaminophen [Pain Reliever] 500 mg Tablet 1,000 mg PO Q8H Qty: 63 RF: 0 oxycodone 5 mg Tablet 5 - 10 mg PO Q4H PRN (Reason: pain) Qty: 30 RF: 0 cefadroxil 500 mg capsule 500 mg PO BID 7 Days Qty: 14 RF: 0 Continue docusate sodium 100 mg Tablet 100 mg PO QAM RF: 0 bimatoprost [Lumigan] 0.01 % Drops 1 drp OPHTHALMIC (EYE) PM RF: 0 calcium carbonate-vitamin D3 [Caltrate with Vitamin D3] 600 mg(1,500mg) -800 unit Tablet 1 tab PO BID RF: 0 ufxgrffr-jje-zqex-folic-vit K1 [Centrum Chewables] 8 mg-400 mcg- 10 mcg Tablet ,Chewable 1 tab PO QAM RF: 0 Discontinued Pennsaid 2 dose EXT BID RF: 0 Stand-Alone Forms: [facility] Discharge Orders: Discharge Order (Routine); Ordered 10/14/18 Ordered By: Tod De Leon Admission Data Admit Date/Time: 10/13/18 13:56 Attending Provider: Abdiel Charles Admit Provider: Abdiel Charles Primary Care Provider: Sandy Blanc Service: Surgical Services Other Interventions: Discharge Summary Assessment (RN) Last Done: 10/14/18 11:39 Pending Studies at Discharge: No DC Date/Time DO NOT enter until pt leaves facility: 10/14/18 13:26
[2018-10-14] MEDS ORDERED: CeleBREX 200 MG CAP PO SCH (21:00)
== END 2018-10-14 13:26 | disposition home health service (06) | DRG 470 ==
LOC: ASU 09:23 → 3E 13:56
DX: Z90.13 Acquired absence of bilateral breasts and nipples; H40.9 Unspecified glaucoma; Z85.3 Personal history of malignant neoplasm of breast; Z92.3 Personal history of irradiation; M17.12 Unilateral primary osteoarthritis, left knee